=== PATIENT | male | born 1975 | race Caucasian/White ===

== ENCOUNTER 2017-01-22 08:37 | Emergency (ER) | payer OTHER ==
--- NOTE | 2017-01-22 09:10 | Emergency Department Record ---
History of Present Illness - General Chief complaint: ENT Stated complaint: SORE THROAT/COUGH Time Seen by Provider: 01/22/17 09:08 Source: Patient Mode of Arrival: Ambulatory Limitations: No limitations - History of Present Illness Initial comments: The patient is here due to a 2-3 week hx of cough, congestion, ST, runny nose and mild sputum production. The cough seems to be worse at night. He denies any CP, SOB, fever, chills, or blood in the sputum. MD complaint: Other Onset/Timin -: Week(s) Location: Throat Severity: Moderate Severity scale (1-10): 8 Quality: Burning Consistency: Constant Improves with: None Worsens with: Other Associated Symptoms: Cough, Pain with swallowing, Sore throat - Related Data Previous Rx's Medication Instructions Recorded Albuterol Sulfate [Proair Hfa] 2 puff IH QID PRN #1 inhaler 01/22/17 Azithromycin [Zithromax] 250 mg PO ASDIR #6 tab 01/22/17 Benzonatate [Tessalon] 1 cap PO Q8H PRN #15 cap 01/22/17 Allergies Allergy/AdvReac Type Severity Reaction Status Date / Time No Known Drug Allergies Allergy Verified 01/22/17 08:43 Travel Screening - Travel/Exposure Within Last 30 Days Have you traveled within the last 30 days?: No Review of Systems Constitutional: Reports: Malaise. Denies: Chills, Fever Eyes: Denies: Eye discharge ENT: Reports: Congestion Respiratory: Reports: Cough. Denies: Dyspnea Cardiovascular: Denies: Arrhythmia Past Medical History - SOCIAL HISTORY Smoking Status: Never smoker Alcohol Use: None Drug Use: None - RESPIRATORY Hx Respiratory Disorders: No - CARDIOVASCULAR Hx Cardio Disorders: Yes Hx Hypertension: Yes - NEURO Hx Neuro Disorders: No - GI Hx GI Disorders: No - Hx Genitourinary Disorders: No - ENDOCRINE Hx Endocrine Disorders: No - MUSCULOSKELETAL Hx Musculoskeletal Disorders: No - PSYCH Hx Psych Problems: No - HEMATOLOGY/ONCOLOGY Hx Hematology/Oncology Disorders: No Family Medical History Any Significant Family History?: No Physical Exam - General General Appearance: Alert, Oriented x3, Cooperative, No acute distress - Head Head exam: Atraumatic, Normocephalic, Normal inspection - Eye Eye exam: Normal appearance, PERRL - ENT ENT exam: Normal exam, Mucous membranes moist, Normal external ear exam, Normal orophraynx, TM's normal bilaterally Throat exam: Normal inspection. negative: Tonsillar erythema, Tonsillomegaly, Tonsillar exudate, R peritonsillar mass, L peritonsillar mass - Neck Neck exam: Normal inspection, Full ROM. negative: Lymphadenopathy, Meningismus , Tenderness - Respiratory Respiratory exam: Normal lung sounds bilaterally. negative: Respiratory distress, Rhonchi, Stridor, Wheezes - Cardiovascular Cardiovascular Exam: Regular rate, Normal rhythm, Normal heart sounds - GI/Abdominal GI/Abdominal exam: Soft, Normal bowel sounds. negative: Tenderness - Extremities Extremities exam: Normal inspection, Full ROM, Normal capillary refill. negative: Tenderness Course Vital Signs 01/22/17 08:43 Temperature 98.1 F Pulse Rate [ 90 Pulse Ox Probe] Respiratory 18 Rate Blood Pressure 154/97 [Left Arm] Pulse Ox 96 - Reevaluation(s) Reevaluation #1: I did discuss with the patient the need for oral Abx's and cough medicines. He is to see his PCP if not better in 3 days or return to the ER if worse. 01/22/17 09:27 Disposition Disposition: Discharge Clinical Impression: Upper respiratory infection, acute Disposition: Home, Self-Care Condition: (1) Good Instructions: Upper Respiratory Infection (ED) Additional Instructions: Please take the medicines as directed and be off work today. Please see your PCP or return to the ER or urgent care if not better in 3 days and sooner if worse. Prescriptions: Albuterol Sulfate [Proair Hfa] 2 puff IH QID PRN #1 inhaler PRN Reason: Cough And Difficulty Breathing Benzonatate [Tessalon] 1 cap PO Q8H PRN #15 cap PRN Reason: Cough Azithromycin [Zithromax] 250 mg PO ASDIR #6 tab Forms: Patient Portal Access Time of Disposition: 09:24
== END 2017-01-22 09:40 | disposition home or self-care (01) ==
LOC: ER 08:37
DX: J06.9 Acute upper respiratory infection, unspecified (principal); R05 Cough
CPT/HCPCS: 99282

== ENCOUNTER 2017-02-14 20:30 | Emergency (ER) | payer OTHER ==
[2017-02-14] MEDS ORDERED: CEFAZOLIN IVPB ONE (21:23)
[2017-02-14] MEDS ORDERED: DEXTROSE IVPB ONE (21:23)
[2017-02-14 21:24] LABS: BASO % 0.1 % (0-6); EOS % 1.1 % (0-6); GRAN % 62.1 % (47-80); HEMATOCRIT 44.2 % (42.0-52.0); HEMOGLOBIN 14.7 gm/dl (14.0-18.0); LYMPH % 28.4 % (16-45); MEAN CORPUSCULAR HEMOGLOBIN 29.9 pg (27-33); MEAN CORPUSCULAR HGB CONC 33.3 g/dl (32-36); MEAN PLATELET VOLUME 10.7 fl (7.4-10.4); MONO % 8.3 % (0-9); PLATELET COUNT 307 K/uL (130-400); RED BLOOD COUNT 4.91 M/uL (4.40-5.70); RED CELL DISTRIBUTION WIDTH 13.4 % (11.5-14.5); WHITE BLOOD COUNT W/O DIFF 11.4 K/uL (4.2-12.2)
[2017-02-14] MEDS ORDERED: Diph,Pert(Acell),Tet Vac 0.5 ML SYR IM ONE (21:25)
[2017-02-14 21:34] LABS: ANION GAP 14.4 (7-16); BLOOD UREA NITROGEN 12 mg/dL (9-20); CARBON DIOXIDE 22.6 mmol/L (22-30); CREATININE 1.1 mg/dL (0.66-1.25); EST GLOMERULAR FILTRATION RATE > 60 ml/min; GLUCOSE,RANDOM 116 mg/dL (70-110)
--- NOTE | 2017-02-14 21:36 | Emergency Department Record ---
History of Present Illness - General Chief Complaint: Laceration(s) Stated Complaint: LACERATION ON LEFT HAND Time Seen by Provider: 02/14/17 21:23 Source: Patient Mode of Arrival: Wheelchair Limitations: No limitations - History of Present Illness Initial Commments: 41 yo male presents with a laceration to the left hand. He fell in a trailer landing on a sharp piece of aluminium. He has a laceration to the left palm with numbness and tingling to the fingers. He has some pain with ROM. He has been holding pressure but continues to experience significant bleeding. Onset/Timin -: Minutes(s) Extremity Location: Left: Hand Place: Outdoors Context: Accidental Treatments Prior to Arrival: Bandage - [place] Coma Scale Eye Response: (4) Open spontaneously Motor Response: (6) Obeys commands Verbal Response: (5) Oriented [place] Total: 15 - Related Data Patient Tetanus UTD (within 5 yrs): No Previous Rx's Medication Instructions Recorded Cephalexin [Keflex] 500 mg PO TID #21 cap 02/14/17 Hydrocodone/Acetaminophen [Early 1 tab PO Q6H PRN #20 tab 02/14/17 7.5mg/325mg] Allergies Allergy/AdvReac Type Severity Reaction Status Date / Time No Known Drug Allergies Allergy Verified 01/22/17 08:43 Travel Screening - Travel/Exposure Within Last 30 Days Have you traveled within the last 30 days?: No - Travel Symptoms Symptom Screening: None Review of Systems Constitutional: Denies: Chills, Fever, Malaise Eyes: Denies: Eye discharge Respiratory: Denies: Cough Cardiovascular: Denies: Chest pain, Palpitations, Syncope Endocrine: Denies: Fatigue Gastrointestinal: Denies: Diarrhea, Nausea, Vomiting Musculoskeletal: Denies: Arthralgia, Joint swelling, Myalgia Skin: Reports: Change in color. Denies: Bruising, Rash Neurological: Denies: Headache Psychiatric: Denies: Anxiety Hematological/Lymphatic: Denies: Blood Clots, Easy bleeding, Easy bruising, Swollen glands Past Medical History - SOCIAL HISTORY Smoking Status: Never smoker - RESPIRATORY Hx Respiratory Disorders: No - CARDIOVASCULAR Hx Cardio Disorders: Yes Hx Hypertension: Yes - NEURO Hx Neuro Disorders: No - GI Hx GI Disorders: No - Hx Genitourinary Disorders: No - ENDOCRINE Hx Endocrine Disorders: No - MUSCULOSKELETAL Hx Musculoskeletal Disorders: No - PSYCH Hx Psych Problems: No - HEMATOLOGY/ONCOLOGY Hx Hematology/Oncology Disorders: No Family Medical History Any Significant Family History?: Yes Hx Heart Disease: Grandparents Hx Stroke: Mother Physical Exam - General General Appearance: Alert, Oriented x3, Cooperative, Anxious Limitations: No limitations - Head Head exam: Atraumatic, Normocephalic, Normal inspection - Eye Eye exam: Normal appearance, PERRL - ENT ENT exam: Normal exam Ear exam: Normal external inspection Nasal Exam: Normal inspection Mouth exam: Normal external inspection Teeth exam: Normal inspection - Neck Neck exam: Normal inspection - Respiratory Respiratory exam: Normal lung sounds bilaterally. negative: Respiratory distress - Cardiovascular Cardiovascular Exam: Regular rate, Normal rhythm, Normal heart sounds Peripheral Pulses: 2+: Radial (L) - GI/Abdominal GI/Abdominal exam: Soft - Rectal Rectal exam: Deferred - exam: Deferred - Extremities Extremities exam: negative: Normal inspection, Full ROM, Normal capillary refill Image of Hand: 1 - laceration with copous bleeding 2 - tingling to the index and middle finger, flexion but pain with flexion 3 - 1cm superficial laceration, - Back Back exam: Reports: Normal inspection - Neurological Neurological exam: negative: Motor sensory deficit (tingling to the index and middle finger) - Psychiatric Psychiatric exam: Normal affect, Normal mood - Skin Skin exam: Dry, Intact, Normal color, Warm Course Vital Signs 02/14/17 21:00 Pulse Rate 80 Respiratory 18 Rate Blood Pressure 131/80 Pulse Ox 96 - Reevaluation(s) Reevaluation #1: The patient was brought back and direct pressure and the bleeding persisted at a significant rate I placed a BP cuff on the left arm to stop the bleeding After the bleeding stopped the wound was carefully flushed copiously with NS and explored for a source No visible artery seen No definite tendon injury but the area is somewhat macerated I continued to copious irrigate the wound with NS 2 large bite sutures placed with 3-0 Prolene The BP cuff was removed with no appearance bleeding or swelling of the hand. This was observed for several minutes 02/14/17 21:27 02/15/17 00:04 02/15/17 00:05 Reevaluation #2: I SW Dr Bartholomew We discussed the wound, the initial bleeding and ED treatment The hand remains normal size without swelling or bleeding He agrees with antibiotics, tetanus, ED treatment and will see the patient in the office in the morning with possible plan for exploration if needed in the OR. He recommended dressing with gentle pressure and volar splint 02/14/17 21:38 02/15/17 00:05 Reevaluation #3: On recheck at this time the hand is not swollen or showing any sign of ongoing bleeding The area was again clean, dressed and a volar splint will be placed The antibiotics were given, tetanus was given He has a referral to be seen tomorrow with Dr Bartholomew. 02/14/17 22:29 The finger s were checked after the volar splint. They are warm with good cap refill He is stable for DC His pain is minimal We discussed reasons for immediate return or going to [facility] ED immediately tonight if any pain, swelling or bleeding 02/15/17 00:07 Medical Decision Making - Lab Data Result diagrams: 02/14/17 21:15 02/14/17 21:15 Disposition Disposition: Discharge Clinical Impression: Laceration of hand with complication Qualifiers: Encounter type: initial encounter Laterality: left Qualified Code(s): S61.412A - Laceration without foreign body of left hand, initial encounter Disposition: Home, Self-Care Condition: (1) Good Instructions: Laceration (ED) Additional Instructions: Call Dr Rehman to be seen first thing tomorrow [facility] or return here immediately if you have bleeding or significant swelling Take the antibiotic as directed Prescriptions: Cephalexin [Keflex] 500 mg PO TID #21 cap Hydrocodone/Acetaminophen [Early 7.5mg/325mg] 1 tab PO Q6H PRN #20 tab PRN Reason: Pain - General Referrals: BRAD BARTHOLOMEW M.D. [MEDICAL DOCTOR] - Forms: Patient Portal Access Time of Disposition: 22:35
[2017-02-14 21:37] LABS: INR 1.01; PROTHROMBIN TIME (PATIENT) 11.4 SECONDS (9.5-12.1)
[2017-02-14] MEDS ORDERED: HYDROCODONE/APAP 7.5/325MG TABLET PO ONE (22:34)
[2017-02-14] MEDS ORDERED: CEPHALEXIN 500 MG CAPSULE PO STA (22:34)
--- NOTE | 2017-02-21 14:11 | RADIOLOGY REPORT ---
EXAM: LEFT HAND, THREE VIEWS HISTORY: PATIENT HAS A CUT ON THE LEFT HAND. TECHNIQUE: Three views of the left hand were provided without comparison examinations. FINDINGS: There is no radiographic evidence of a fracture or dislocation of the left hand. Soft tissue swelling at the palmar aspect of the left hand is noted. No radiopaque foreign bodies are identified. IMPRESSION: SOFT TISSUE SWELLING IS NOTED AT THE PALMAR ASPECT OF THE LEFT HAND WITHOUT RADIOGRAPHIC EVIDENCE OF A FRACTURE OR DISLOCATION OF THE LEFT HAND. NO RADIOPAQUE FOREIGN BODIES ARE IDENTIFIED. JOB NUMBER: [id number] [facility]
== END 2017-02-14 22:56 | disposition home or self-care (01) ==
LOC: ER 20:30
DX: S61.412A Laceration without foreign body of left hand, initial encounter (principal); S61.012A Laceration without foreign body of left thumb without damage to nail, initial encounter; R20.2 Paresthesia of skin; I10 Essential (primary) hypertension; W26.8XXA Contact with other sharp object(s), not elsewhere classified, initial encounter; Y92.89 Other specified places as the place of occurrence of the external cause
CPT/HCPCS: 12042 ×2; 99284 ×2; 96372; 96365; 85025; 85610; 80048; 73130; J0690; 90715

== ENCOUNTER 2017-03-11 09:55 | Emergency (ER) | payer OTHER ==
[2017-03-11] MEDS ORDERED: KETOROLAC 30 MG/ML VIAL IVP ONE (10:05)
--- NOTE | 2017-03-11 10:10 | Emergency Department Record ---
History of Present Illness - General Chief complaint: Extremity Problem Stated complaint: RT FOOT SWOLLEN/PAIN Time Seen by Provider: 03/11/17 09:59 Source: Patient, Family Mode of Arrival: Ambulatory Limitations: No limitations - History of Present Illness Initial comments: 41 yo male presents with right foot pain, swelling, warmth, and mild lateral foot redness. No known injury. No fevers or chills. No recent scratches or abrasions. The pain is from the base of the 5th digit to the posterior lateral foot. No history of gout. MD Complaint: Extremity swelling, Joint pain, Joint swelling -: Days(s) (3) Location: Right, Foot -: Yes Arthralgia Radiation: Proximal, Distal Quality: Aching Consistency: Constant Improves with: Elevation, Immobilization Associated Symptoms: Denies other symptoms - Related Data Previous Rx's Medication Instructions Recorded Cephalexin [Keflex] 500 mg PO TID #21 cap 03/11/17 Ibuprofen [Motrin 600Mg] 600 mg PO Q6H #20 tablet 03/11/17 Methylprednisolone [Medrol Dose 0 mg PO UD #1 tab.ds.pk 03/11/17 Pack] Allergies Allergy/AdvReac Type Severity Reaction Status Date / Time No Known Drug Allergies Allergy Verified 01/22/17 08:43 Review of Systems Constitutional: Denies: Chills, Fever, Malaise, Weakness Eyes: Denies: Eye discharge, Eye pain, Photophobia, Vision change ENT: Denies: Congestion, Throat pain Respiratory: Denies: Cough Cardiovascular: Denies: Chest pain, Syncope Endocrine: Denies: Fatigue, Polydipsia, Polyuria Gastrointestinal: Denies: Abdominal pain, Diarrhea, Nausea, Vomiting Genitourinary: Denies: Dysuria, Frequency, Hematuria Musculoskeletal: Reports: As per HPI, Arthralgia, Joint swelling. Denies: Back pain, Neck pain Skin: Reports: As per HPI, Change in color. Denies: Bruising Neurological: Denies: Confusion, Headache Psychiatric: Denies: Anxiety Hematological/Lymphatic: Denies: Blood Clots, Easy bleeding, Easy bruising, Swollen glands Past Medical History - SOCIAL HISTORY Smoking Status: Never smoker - RESPIRATORY Hx Respiratory Disorders: No - CARDIOVASCULAR Hx Cardio Disorders: Yes Hx Hypertension: Yes - NEURO Hx Neuro Disorders: No - GI Hx GI Disorders: No - Hx Genitourinary Disorders: No - ENDOCRINE Hx Endocrine Disorders: No - MUSCULOSKELETAL Hx Musculoskeletal Disorders: No - PSYCH Hx Psych Problems: No - HEMATOLOGY/ONCOLOGY Hx Hematology/Oncology Disorders: No Family Medical History Hx Heart Disease: Grandparents Hx Stroke: Mother Physical Exam - General General Appearance: Alert, Oriented x3, Cooperative, No acute distress Limitations: No limitations - Head Head exam: Normal inspection - Eye Eye exam: Normal appearance, PERRL. negative: Conjunctival injection - ENT ENT exam: Normal exam Ear exam: Normal external inspection Nasal Exam: Normal inspection - Neck Neck exam: Normal inspection - Respiratory Respiratory exam: Normal lung sounds bilaterally. negative: Respiratory distress - Cardiovascular Cardiovascular Exam: Regular rate, Normal rhythm, Normal heart sounds Peripheral Pulses: 2+: Radial (L), Dorsalis Pedis (R) - Rectal Rectal exam: Deferred - exam: Deferred - Extremities Extremities exam: Full ROM, Joint swelling, Normal capillary refill, Tenderness. negative: Normal inspection, Calf tenderness Image of Feet: 1 - mild swelling, tenderness, mild warmth, mild erythema, intact skin, plantar area normal to inspection, no ankle tenderness or ankle joint pain with ROM, - Back Back exam: Reports: Full ROM - Neurological Neurological exam: Alert, Motor sensory deficit (left hand index to thumb due to recent hand laceration), Oriented X3 - Psychiatric Psychiatric exam: Normal affect, Normal mood - Skin Skin exam: Erythema Course - Reevaluation(s) Reevaluation #1: The labs were reviewed CRP 2 Uric Acid is 9.1 WBC is 13 Possible gout based on the examination and elevated UA. 03/11/17 11:05 Reevaluation #2: The XR was negative except for STS I explained gout and the treatment We discussed foods and alcohol that can worsen gout We discussed minimal weight bearing. He can not do crutches due to recent hand injury/surgery 03/11/17 11:21 Medical Decision Making - Lab Data Result diagrams: 03/11/17 10:30 03/11/17 10:30 Disposition Disposition: Discharge Clinical Impression: Gout attack Qualifiers: Gout site: unspecified site Gout etiology: unspecified cause Qualified Code(s) : M10.9 - Gout, unspecified Disposition: Home, Self-Care Condition: (1) Good Instructions: Low Purine Diet (ED), Gout (ED) Additional Instructions: Keep the area elevated to minimize swelling Return if you have fever, uncontrolled pain or any new concerns Prescriptions: Cephalexin [Keflex] 500 mg PO TID #21 cap Ibuprofen [Motrin 600Mg] 600 mg PO Q6H #20 tablet Methylprednisolone [Medrol Dose Pack] 0 mg PO UD #1 tab.ds.pk Forms: Patient Portal Access Time of Disposition: 11:25
[2017-03-11 10:38] LABS: HEMATOCRIT 44.6 % (42.0-52.0); HEMOGLOBIN 14.8 gm/dl (14.0-18.0); MEAN CELL VOLUME 90.1 fl (81-97); MEAN CORPUSCULAR HEMOGLOBIN 29.9 pg (27-33); MEAN CORPUSCULAR HGB CONC 33.2 g/dl (32-36); MEAN PLATELET VOLUME 10.2 fl (7.4-10.4); PLATELET COUNT 279 K/uL (130-400); RED BLOOD COUNT 4.95 M/uL (4.40-5.70); RED CELL DISTRIBUTION WIDTH 13.6 % (11.5-14.5); WHITE BLOOD COUNT W/O DIFF 13.1 K/uL (4.2-12.2)
[2017-03-11 10:51] LABS: PLATELET ESTIMATE NORMAL (NORMAL)
[2017-03-11 10:52] LABS: ANION GAP 8.5 (7-16); BLOOD UREA NITROGEN 10 mg/dL (9-20); CARBON DIOXIDE 22.5 mmol/L (22-30); CREATININE 0.9 mg/dL (0.66-1.25); EST GLOMERULAR FILTRATION RATE > 60 ml/min; GLUCOSE,RANDOM 113 mg/dL (70-110)
[2017-03-11] MEDS ORDERED: MORPHINE SULFATE 5 MG/ML PFS IVP ONE (11:04)
[2017-03-11] MEDS ORDERED: METHYLPREDNISOLONE PF 125MG/VIAL IVP SCH (11:15)
[2017-03-11] MEDS ORDERED: METHYLPREDNISOLONE PF 125MG/VIAL IVP ONE (11:19)
--- NOTE | 2017-03-15 14:27 | RADIOLOGY REPORT ---
EXAM: RIGHT FOOT HISTORY: RIGHT FOOT PAIN. TECHNIQUE: Three views of the right foot were obtained. Comparison: None. Encounter: Initial. FINDINGS: Lateral soft tissue swelling. Negative for acute fracture or dislocation. No soft tissue gas. No underlying acute osseous abnormality. IMPRESSION: LATERAL SOFT TISSUE SWELLING. NO ACUTE OSSEOUS ABNORMALITY. JOB NUMBER: [id number] [facility]
== END 2017-03-11 11:51 | disposition home or self-care (01) ==
LOC: ER 09:55
DX: M10.071 Idiopathic gout, right ankle and foot (principal)
CPT/HCPCS: 99284 ×2; 96374; 96375; 84550; 86140; 80048; 85027; 73630; J1885; J2270; J2930

== ENCOUNTER 2019-03-25 20:19 | Emergency (ER) | payer OTHER ==
[2019-03-25] MEDS ORDERED: PROPARACAINE HCL OPTH 15ML BTL OPTH ONE (20:46)
--- NOTE | 2019-03-25 21:04 | Emergency Department Record ---
History of Present Illness - General Chief complaint: Eye Problem Stated complaint: FOREIGN BODY IN EYE Time Seen by Provider: 03/25/19 21:02 Source: Patient Mode of Arrival: Ambulatory Limitations: No limitations - History of Present Illness Initial comments: 43 yo male presents to ED for evaluation of foreign body sensation to the left eye. Patient reports that he was "blowing metal shards" at work, reports that the FB sensation began around 14:30 this afternoon. Patient reports pain and photophobia to the left eye. Patient denies other injury on examination, and denies health problems at his baseline. Patient has not seen an eye doctor prev iously. chief complaint: Eye pain, Eye redness, Eye injury, Foreign body Onset/Timin -: Hour(s) Onset Description: Sudden Location: Left eye Place: Home If Injury: Other Eye Symptoms: Blurry vision, Itching, Redness Severity scale (1-10): 8 If Pain, Quality: Aching Consistency: Constant Context: Injury Associated Symptoms: None - Related Data Visual acuity (L) = 20/: 80 Visual acuity (R) = 20/: 30 Hx Tetanus Toxoid Vaccination: No Patient Tetanus UTD (within 5 yrs): No Home Medications Medication Instructions Recorded Confirmed Last Taken No Home Med [NO HOME MEDS] 03/25/19 03/25/19 Unknown Allergies Allergy/AdvReac Type Severity Reaction Status Date / Time No Known Drug Allergies Allergy Verified 03/25/19 20:52 Travel Screening - Travel/Exposure Within Last 30 Days Have you traveled within the last 30 days?: No - Travel/Exposure Within Last Year Have you traveled outside the [place] in the last year?: No - Additonal Travel Details Have you been exposed to anyone with a communicable illness?: No - Travel Symptoms Symptom Screening: None Review of Systems Constitutional: Denies: Chills, Fever, Malaise, Night sweats Eyes: Reports: Eye pain, Photophobia, Vision change. Denies: Eye discharge ENT: Denies: Congestion, Ear pain, Epistaxis Respiratory: Denies: Cough, Dyspnea Cardiovascular: Denies: Chest pain, Dyspnea on exertion, Palpitations Endocrine: Denies: Fatigue, Heat or cold intolerance Gastrointestinal: Denies: Abdominal pain, Nausea, Vomiting Genitourinary: Denies: Testicular pain, Testicular mass Musculoskeletal: Denies: Arthralgia, Back pain Skin: Denies: Bruising, Change in color Neurological: Denies: Abnormal gait, Confusion, Headache, Seizure Psychiatric: Denies: Anxiety Hematological/Lymphatic: Denies: Anemia, Blood Clots Past Medical History - SOCIAL HISTORY Smoking Status: Never smoker Alcohol Use: None Drug Use: None - RESPIRATORY Hx Respiratory Disorders: No - CARDIOVASCULAR Hx Cardio Disorders: Yes Hx Hypertension: Yes - NEURO Hx Neuro Disorders: No - GI Hx GI Disorders: No - Hx Genitourinary Disorders: No - ENDOCRINE Hx Endocrine Disorders: No - MUSCULOSKELETAL Hx Musculoskeletal Disorders: No - PSYCH Hx Psych Problems: No - HEMATOLOGY/ONCOLOGY Hx Hematology/Oncology Disorders: No Family Medical History Any Significant Family History?: Yes Hx Heart Disease: Grandparents Hx Stroke: Mother Physical Exam - General General Appearance: Alert, Oriented x3, Cooperative, Mild distress Limitations: No limitations - Head Head exam: Atraumatic, Normocephalic, Normal inspection Head exam detail: negative: Abrasion, Contusion, Chapman's sign, General tenderness, Hematoma, Laceration - Eye Eye exam: Conjunctival injection, Other (Small FB present at the seven o'clock position overlying the iris on examination of the left eye, no FB present on upper.lower lid eversion, no corneal abrasions are present on examination.). negative: Periorbital swelling, Periorbital tenderness, Scleral icterus Image of Eyes: 1 - Pupil 2 - Small, radio-opague FB present on examination. - ENT Ear exam: negative: Auricular hematoma, Auricular trauma Nasal Exam: negative: Active bleeding, Discharge, Dried blood, Foreign body Mouth exam: negative: Drooling, Laceration, Muffled voice, Tongue elevation - Neck Neck exam: Normal inspection. negative: Meningismus, Tenderness - Respiratory Respiratory exam: Normal lung sounds bilaterally. negative: Rales, Respiratory distress, Rhonchi, Stridor - Cardiovascular Cardiovascular Exam: Regular rate, Normal rhythm, Normal heart sounds - GI/Abdominal GI/Abdominal exam: Soft. negative: Rebound, Rigid, Tenderness - Rectal Rectal exam: Deferred - exam: Deferred - Extremities Extremities exam: Normal inspection. negative: Pedal edema, Tenderness - Back Back exam: Denies: CVA tenderness (R), CVA tenderness (L) - Neurological Neurological exam: Alert, Normal gait, Oriented X3 - Psychiatric Psychiatric exam: Normal affect, Normal mood - Skin Skin exam: Normal color. negative: Abrasion Type of lesion: negative: abrasion Course Vital Signs 03/25/19 20:47 Temperature 98.0 F Pulse Rate 87 Respiratory 20 Rate Blood Pressure 150/97 Pulse Ox 96 - Reevaluation(s) Reevaluation #1: 03/25/19 21:08 Patient was seen and examined. Following anesthesia to the left eye, attempted to remove corneal FB with a moist q-tip without success. Case was discussed with Dr. 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 Patient was started on Gentamycin eye drops as directed. Appears stable for discharge at this time. Disposition Disposition: Discharge Clinical Impression: Corneal foreign body Qualifiers: Encounter type: initial encounter Laterality: left Qualified Code(s): T15.02XA - Foreign body in cornea, left eye, initial encounter Disposition: Home, Self-Care Condition: (2) Stable Instructions: Eye Foreign Body (ED) Additional Instructions: Return to ED if your symptoms worsen or if you have any concerns. Gentamycin 2 drops to the left eye every 4 hours. Follow-up with Dr. Tiwari tomorrow as directed. Referrals: ALVARO TIWARI [MEDICAL DOCTOR] - Forms: Patient Portal Access Time of Disposition: 21:03 Quality - Quality Measures Quality Measures: N/A - Blood Pressure Screening Does Patient Have Any of the Following: No Blood Pressure Classification: Hypertensive Reading Systolic Measurement: 137 Diastolic Measurement: 97 Screening for High Blood Pressure: < First Hypertensive BP, F/U Documented > [G8950] First Hypertensive Follow-up Interventions: Referral to alternative/primary care provider.
[2019-03-25] MEDS ORDERED: GENTAMICIN SULFATE 0.3% OPTH 5 ML BTL OPTH SCH (21:15)
== END 2019-03-25 21:19 | disposition home or self-care (01) ==
LOC: ER 20:19
DX: T15.02XA Foreign body in cornea, left eye, initial encounter (principal); X58.XXXA Exposure to other specified factors, initial encounter; Y93.89 Activity, other specified; Y92.69 Other specified industrial and construction area as the place of occurrence of the external cause; Y99.0 Civilian activity done for income or pay
CPT/HCPCS: 99283